=== PATIENT | female | born 1940 | race Caucasian/White ===

== ENCOUNTER 2016-07-14 00:11 | Day surgery (SDC) | payer MEDICARE, OTHER ==
[~2016-07-14 00:11] MED LIST: ATOR20TA PO; BUPR100T15 PO; CALC-752 PO; FERR325C PO; FURO40TA4 PO; HYDR-4003 PO; HYDR25TA4 PO; INDO25CA PO; LEVO100T6 PO; MULT0.252 PO; POTA-62 PO; PROP10TA8 PO; RIVA20TA PO; SULF1TAB7 PO; TRAZ-115 PO
[2016-07-14] MEDS ORDERED: Benzoc-Butamben-Tetraca Spray 20 Gm Spray TOPICAL PRN (10:00)
[2016-07-14] MEDS ORDERED: Heparin 1,000 Unit/mL 10 mL Inj ONE (13:02)
[2016-07-14] MEDS ORDERED: 0.9% Sodium Chloride 0 ML ONE (13:02)
[2016-07-14] MEDS ORDERED: Bupivacaine-MPF 0.5% 30 mL Inj ONE (13:02)
== END 2016-07-14 23:59 | disposition home or self-care (01) ==
LOC: SOUO 00:11
PROVIDERS: ATTEND Internal Medicine Cardiovascular Disease
DX: I48.0 Paroxysmal atrial fibrillation (principal)

== ENCOUNTER 2016-09-08 00:54 | Day surgery (SDC) | payer MEDICARE, OTHER ==
[~2016-09-08] VITALS: Ht 165.1 cm; Wt 59.9 kg
[2016-09-08] VITALS (16 sets, daily range): BP systolic 93–124; BP diastolic 58–82; PULSE 70–120; RESP 11–19; O2SAT 94–100
[2016-09-08] MEDS ORDERED: Protamine Sulfate 10 mg/mL 5 mL Inj ONE ×2 (00:55→11:08)
[2016-09-08] MEDS ORDERED: Dexamethasone 4 mg/mL Inj ONE (00:55)
[2016-09-08] MEDS ORDERED: Propofol 10,000 mCg/mL 20 mL Inj ONE (00:55)
[2016-09-08] MEDS ORDERED: MetoCLOpramide 5 mg/mL 2 mL Inj ONE (00:55)
[2016-09-08] MEDS ORDERED: Phenylephrine/NS 100 mCg/mL 10 mL Syringe IVPUSH ONE (00:55)
[2016-09-08] MEDS ORDERED: Ketamine 10 mg/mL 20 mL Inj ONE (00:55)
[2016-09-08] MEDS ORDERED: Ondansetron 2 mg/mL 2 mL Inj ONE (00:55)
[2016-09-08] MEDS ORDERED: Lactated Ringer's 1,000 ML IV SCH ×2 (05:00→07:54)
[2016-09-08 06:43] LABS: BASOPHILS % (AUTO) 0.5 % (0-3); EOSINOPHILS % (AUTO) 3.1 % (0-5); MONOCYTES % (AUTO) 10.9 % (4-12); Mean Corpuscular Hemoglobin 35.5 pg (27.0-35.0); Mean Corpuscular Volume 108.2 fL (81-100); NEUTROPHILS % (AUTO) 37.3 % (40-74); Platelet Count 159 bil/L (150-400)
[2016-09-08] MEDS ORDERED: Benzoc-Butamben-Tetraca Spray 20 Gm Spray TOPICAL PRN (06:45)
[2016-09-08 06:57] LABS: INR 1.1 ratio
[2016-09-08] MEDS ORDERED: 0.9% Sodium Chloride 3,000 ML ONE (07:29)
[2016-09-08] MEDS ORDERED: Heparin 5,000 Units/500 mL NS Premix IV ONE (07:29)
[2016-09-08] MEDS ORDERED: Heparin 1,000 Units/500 mL NS Premix IV ONE (07:29)
[2016-09-08] MEDS ORDERED: Heparin 1,000 Unit/mL 10 mL Inj ONE (07:29)
[2016-09-08] MEDS ORDERED: Heparin 25,000 Unit/500 mL 0.45% NS Premix IV ONE (07:29)
[2016-09-08] MEDS ORDERED: 0.9% Sodium Chloride 500 ML ONE (07:30)
[2016-09-08] MEDS ORDERED: Lactated Ringer's 500 ML IV PRN (07:54)
[2016-09-08] MEDS ORDERED: EPHEDrine Sulfate 50 mg/mL Inj IVPUSH PRN (07:55)
[2016-09-08] MEDS ORDERED: Ondansetron 2 mg/mL 2 mL Inj IVPUSH PRN (07:55)
[2016-09-08] MEDS ORDERED: Dexamethasone 4 mg/mL Inj IVPUSH PRN (07:55)
[2016-09-08] MEDS ORDERED: HYDROmorphone 1 mg/mL Inj IVPUSH PRN (07:55)
[2016-09-08] MEDS ORDERED: Phenylephrine 10,000 mCg/mL Inj IVPUSH PRN (07:55)
[2016-09-08] MEDS ORDERED: MetoCLOpramide 5 mg/mL 2 mL Inj IVPUSH PRN (07:55)
[2016-09-08] MEDS ORDERED: fentaNYL-PF 50 mCg/mL 2 mL Inj IVPUSH PRN (07:55)
[2016-09-08] MEDS ORDERED: HYDROcodone-APAP 5-325 mg Tablet PO ONE (13:45)
--- NOTE | 2016-09-08 14:22 | PROCED ---
[address] [address] PROCEDURE NOTE PATIENT: ELINA YOUNG : 1940 MR#: [id number] ADMIT: 09/08/2016 JOB ID: [id number] DATE OF SERVICE: 09/08/2016 PREOPERATIVE DIAGNOSIS(ES): Drug refractory paroxysmal atrial fibrillation. POSTOPERATIVE DIAGNOSIS(ES): Drug refractory paroxysmal atrial fibrillation. PROCEDURES PERFORMED: 1. Comprehensive electrophysiology study with left atrial pacing and recording. 2. Three-dimensional electroanatomic mapping using the CARTO 3 system. 3. Transseptal puncture x2. 4. Intracardiac echocardiography. 5. Pulmonary vein isolation/atrial fibrillation ablation. 6. Direct current cardioversion. 7. Barium esophagram. 8. Fluoroscopy. SURGEON: Matt Blake M.D. PARAPROFESSIONAL INTERPRETER: Dionna Waterman; Chaitanya Lynch; Asif Argueta PA-C. ANESTHESIA: General endotracheal anesthesia was undertaken for this case. INDICATION: The patient is a pleasant 75-year-old woman with preserved LV function, moderate mitral regurgitation with symptomatic drug refractory atrial fibrillation. After discussion of the risks and benefits of catheter based mapping ablation, she opted to proceed. PROCEDURAL DESCRIPTION: Following informed signed consent, the patient was taken to the EP laboratory in a nonsedated state where she was prepped in the usual sterile fashion. She underwent a preprocedural transesophageal echocardiogram by Dr. Vogel confirming lack of intracardiac thrombus. Please see separate dictated report for the details of that procedure. The bilateral groins were then infiltrated with 1% lidocaine. Then, using the modified Seldinger technique, two 8-Peruvian sheaths were inserted into the right femoral vein. A 7 and 10.5-Peruvian sheath were inserted into the left femoral vein, and under fluoroscopic guidance, a deflectable decapolar catheter was advanced into the coronary sinus with the most proximal bipoles at the os of the sinus. An intracardiac echocardiographic probe was advanced to the RV outflow tract and used to visualize the pericardial space. A small slightly larger than physiologic effusion was noted prior to any catheter manipulation. This was noted and monitored throughout the case. Ice probe was pulled back into the right atrium and used to visualize the interatrial septum in assistance of transseptal puncture. Two transseptal punctures were performed in an identical fashion. Each of the short 8-Peruvian sheaths in the right groin were exchanged over a long wire for a Valdovinos sheath dilator and a [place] Brockenbrough needle. Of note there was some difficulty in manipulating the wire from the right femoral vein into the SVC. Ultimately, this was achieved, and at one point, a Kumpe 5-Peruvian catheter was required to the wire. The entire system was then used to engage the interatrial septum. Then, under fluoroscopic ICE and pressure guidance, the septum was traversed twice to deliver two Valdovinos sheaths into the left atrium. The patient was heparinized for a goal ACT of 350-400 seconds for the entire time with the left atrium following the first and preceding the second transseptal puncture. A re-survey of the pericardial space showed no evidence of change in the small effusion. Through the two Valdovinos sheaths, an F curve Smart Touch irrigated ablation catheter was passed, as was a 20 pole catheter. A three-dimensional electroanatomic map of the left atrium and four pulmonary veins was created using the CARTO 3 system. The patient was in atrial fibrillation throughout the case. Circumferential ablation lesions were placed around the left upper, left lower, right upper and right lower pulmonary veins in that order. After entrance block was achieved in the left upper pulmonary vein, a 200 joule biphasic synchronized shock was used to convert the patient to sinus rhythm. Exit block was confirmed from the vein entrance and exit block was confirmed in all four veins. We then disengaged from the left atrium and turned off heparin. We reversed the patient's heparin with Protamine. A resurvey of the pericardial space showed no evidence of change in the small effusion. During the course of this study, we did complete a comprehensive electrophysiology study with right atrial pacing and recording, right ventricular pacing and recording and His bundle pacing and recording in the coronary sinus catheter. All catheters and sheaths were removed. Manual pressure was held for hemostasis. The patient was transferred to the [facility] for monitoring and bedrest. COMPLICATIONS: None. ESTIMATED BLOOD LOSS: 20 cc. FINDINGS: 1. Baseline rhythm is atrial fibrillation post cardioversion and ablation. She is in sinus rhythm with an RR interval of 914 msec, NC 184 msec, QRS 88 msec, QT 465 msec. 2. Intracardiac intervals: AH interval 80 msec, HV 50 msec. 3. Retrograde conduction: VA activation is concentric with a VA Wenckebach at 490 msec. 4. Pulmonary vein isolation with entrance and exit block as described above. IMPRESSION: Successful pulmonary vein isolation procedure for paroxysmal drug refractory atrial fibrillation. PLAN: 1. Bed rest x4 hours. 2. Resume Xarelto with first dose to be given once patient is awake. 3. Continue beta blockade. 4. Protonix 40 mg p.o. daily x1 month. 5. Initiate flecainide 50 mg twice daily and obtain an EKG in one week. 6. Followup with Asif Argueta in four weeks and with me in three months. ATTENDING STATEMENT: Matt Blake M.D., electrophysiology attending, was present for and supervised/performed all aspects of this procedure.
--- NOTE | 2016-09-08 14:58 | PCM.ANEP1 ---
Post Anesthesia Phase 1 PACU Phase 1 Assessment Vital Signs Vital Signs Date Time Temp Pulse Resp B/P Pulse Ox O2 Delivery O2 Flow Rate FiO2 09/08/16 14:30 80 11 113/68 09/08/16 14:30 80 12 113/68 94 Room Air 09/08/16 14:00 79 11 113/65 09/08/16 14:00 80 12 113/68 94 Room Air 09/08/16 13:29 79 11 113/65 95 Room Air 09/08/16 13:29 79 11 113/65 09/08/16 13:00 78 11 102/67 95 Room Air 09/08/16 13:00 75 11 102/67 09/08/16 12:45 75 11 106/63 09/08/16 12:45 75 11 106/63 95 Room Air 09/08/16 12:30 74 11 96/59 09/08/16 12:30 74 11 96/59 95 Room Air 09/08/16 12:15 73 14 93/59 95 Room Air 09/08/16 12:05 72 14 95/59 95 Room Air 09/08/16 12:00 72 14 99/63 100 Oxy Mask 6.00 09/08/16 11:55 36.2 70 14 97/62 100 Oxy Mask 6.00 Anesthetic Administered: GA Level of Alertness: Awake, talking Pain: No Nausea or Vomiting: No Cardiovascular Function and Hy: No Lungs: Normal Air Movement Saad Rivera MD Sep 08, 2016 14:58
--- NOTE | 2016-09-08 14:58 | PCM.HPANE ---
Patient Data Surgeon Admitting Provider: Attending Provider:Matt Blake MD Primary Care Physician:Hermilo Rainey MD Other Provider:LeoocLusk Anesthesia Reason for Visit Paroxysmal Atrial Fibrillation Ht/WT & BMI Height (Feet): 5 Height (Inches): 5.00 Weight (Kilograms): 58.100 Body Mass Index 21.34 Allergies Coded Allergies: No Known Allergies (Unverified , 07/14/16) Past Anesthesia History Anesthesia History: Denies:: Anesthesia Reactions Diabetes History Hx Diabetes?: No MRSA MRSA: Yes (with hip replacement in 2012) Medications Hypertension Medication: No Home Meds Incl Beta Vladislav: No Reported Medications Rivaroxaban (Xarelto)20 Mg Zctetu74 Mg PO DAILYWD 07/13/16 Trazodone 50 Mg Luqjwg39 Mg PO HS PRN For Insomnia Ref 0 07/13/16 Sulfamethoxazole/Trimeth 800-160 mg (Bactrim DS)1 Each Tablet1 Tablet PO DAILY Ref 0 07/13/16 Propranolol HCl 10 Mg Ycpjvr25 Mg PO TID 90 Days Ref 0 07/13/16 Potassium Chloride ER 20 Meq Tablet.er20 Meq PO TID Ref 0 TAKE WITH FOOD 07/13/16 Multivitamins with Fluoride (Multivit-Fluor 0.25 mg/ml Drop)0.25 Mg/1 Ml Drops0.25 Mg PO 07/13/16 Levothyroxine 100 Mcg Gtpuwp657 Mcg PO DAILY For Thyroid Replacement Ref 0 07/13/16 Ferrous Sulfate (Iron)325 Mg Capsule.er325 Mg PO BID 07/13/16 Indomethacin 25 Mg Ssuscsz89 Mg PO TID PRN Gout Ref 0 07/13/16 Hydrocodone-Acetaminophen 5-325 mg 1 Each Tablet1 Tablet PO Q6H PRN For Pain Ref 0 07/13/16 Hydrochlorothiazide 25 Mg Czyivm65 Mg PO DAILY PRN Edema 30 Days Ref 0 07/13/16 Furosemide 40 Mg Edpncq47 Mg PO DAILY 07/13/16 Calcium Carbonate/Mag Oxide/Zn (Qmonuse-Qlvqtrtyl-Jqrq Tablet)1 Each Tablet1 Each PO DAILY 07/13/16 Bupropion 100 Mg Jwatym983 Mg PO BID Ref 0 07/13/16 Atorvastatin (Lipitor)20 Mg Wmsrsc07 Mg PO DAILY Ref 0 07/13/16 History History of ENT Problems?: No HEENT History: Denies:: Abnormal Airway Cataracts Difficult Intubation Dysphagia Glaucoma Hearing Problem Sinus Problem TMJ Denture Type: None Teeth Condition: Within Normal Limits Hx of Heart Problems?: Yes Cardiovascular History: Positive for:: Hypertension (on medication) Irregular Heartbeat (atrial fibrillation) Denies:: Cardiac Surgery Chest Pain Congestive Heart Failure Edema Heart Murmur Peripheral Vascular Hx of Respiratory Problem?: No Respiratory History: Denies:: Asthma COPD Chest Surgery Cough Dyspnea Emphysema Hemoptysis Oxygen Administration Pneumonia Pulmonary Embolism Tuberculosis Use of C-PAP Machine Use of Inhalers / NEBS Hx Neurologic Problems?: Yes Neurological History: Positive for:: Headaches (distant history of migraines) Denies:: Alzheimer's Disease CVA Dementia Dizziness Multiple Sclerosis Parkinson's Disease Peripheral Neuropathy Seizures TIA Hx of GI Problems?: Yes Gastrointestinal History: Denies:: Cirrhosis Diverticulitis Gall Bladder Disease Gastroesphageal Reflux Gastrointestinal Bleeding Heartburn Hepatitis Hiatal Hernia Liver Disease Rectal Bleeding Hx of Problems?: No Genitourinary History: Denies:: HX of Hemodialysis Kidney Stones Urinary Tract Infection HX of Peritoneal Dialysis: No Female Hx: Denies:: Currently Endometriosis Pelvic Inflammatory Problems with Breasts? Skin History: Denies:: History Skin Disorders? Pressure Ulcers Hx Musculoskeletal Problems?: Yes Musculoskeletal History: Positive for:: Back Injury (chronic back pain) Joint Replacement (4 hip replacements) Denies:: Degenerative Joint Fibromyalgia Musculoskeletal Trauma Myasthenia Gravis Osteoarthritis Rheumatoid Arthritis Systemic Lupus Hx of Psycho/Social Problems?: No Psycho Social History: Denies:: Anxiety Bipolar Disorder Hx Depression Suicide Attempt Hx Surgeries?: Yes (wrist fracture, 4 hip replacement) Hx Any Other Health Problems?: No Other History: Positive for:: Cancer (breast cancer) Hospitalization Thyroid Disease (on replacement) Denies:: Endocrine Disease History Blood Transfusions: Positive for:: Accept Blood Products? Blood Transfusions Hx Diabetes: No Hx Alcohol Use: Yes (2 glasses a day)Hx Substance Use: NoHave You Smoked inLast 12 mo: No Stop/Bang Treated for Sleep Apnea?: No Do You Have a CPAP Machine?: No JENY Risk Assessment: Low Risk, <3 Yes Risk Assessment Category Category 1A: Patient has history of documented sleep apnea, and HAS NOT received any narcotic, sedative or anesthesia administration during this stay. Category 1B: Patient has history of documented sleep apnea, and HAS received any narcotic , sedative or anesthesia administration during this stay Category 2: Patient has SUSPECTED Obstructive Sleep Apnea, and HAS received any narcotic , sedative or anesthesia administration during this stay. Category 3: Patient has SUSPECTED Obstructive Sleep Apnea and HAS NOT received narcotic, sedative or anesthesia administration during this stay. Category 4: Outpatient in Procedural Areas with known sleep apnea or who screen positive for High Risk via the STOP/BANG questionnaire. Exam Exam Vital Signs Vital Signs Date Time Temp Pulse Resp B/P Pulse Ox O2 Delivery O2 Flow Rate FiO2 09/08/16 14:30 80 11 113/68 09/08/16 14:30 80 12 113/68 94 Room Air 09/08/16 14:00 79 11 113/65 09/08/16 14:00 80 12 113/68 94 Room Air 09/08/16 13:29 79 11 113/65 95 Room Air 09/08/16 13:29 79 11 113/65 09/08/16 13:00 78 11 102/67 95 Room Air 09/08/16 13:00 75 11 102/67 09/08/16 12:45 75 11 106/63 09/08/16 12:45 75 11 106/63 95 Room Air 09/08/16 12:30 74 11 96/59 09/08/16 12:30 74 11 96/59 95 Room Air 09/08/16 12:15 73 14 93/59 95 Room Air 09/08/16 12:05 72 14 95/59 95 Room Air 09/08/16 12:00 72 14 99/63 100 Oxy Mask 6.00 09/08/16 11:55 36.2 70 14 97/62 100 Oxy Mask 6.00 General Appearance: Oriented X3 HEENT/AIRWAY: MP 2 Lungs: Normal Air Movement Heart: Other Meds/Labs/Diagnostics Admission Meds Current Medications Rivaroxaban (Xarelto) 20 mg DAILY@17 PO Last administered on 09/08/16t 14:22; Start 09/08/16 at 13:45 Labs Test 09/08/16 06:34 White Blood Count 3.9th/mm3 (3.8-10.1) Red Blood Count 3.66mil/mm3 (3.90-5.20) Hemoglobin 13.0g/dL (12.0-15.6) Hematocrit 39.6% (35.0-46.0) Mean Corpuscular Volume 108.2fL (81-100) Mean Corpuscular Hemoglobin 35.5pg (27.0-35.0) Mean Corpuscular Hemoglobin Concent 32.8% (32.0-37.0) Red Cell Distribution Width 11.3% (12.3-15.4) Platelet Count 159bil/L (150-400) Neutrophils (%) (Auto) 37.3% (40-74) Lymphocytes (%) (Auto) 48.2% (14-46) Monocytes (%) (Auto) 10.9% (4-12) Eosinophils (%) (Auto) 3.1% (0-5) Basophils (%) (Auto) 0.5% (0-3) Prothrombin Time 11.8sec (8.1-12.5) Prothromb Time International Ratio 1.10ratio Sodium Level 138mEq/L (134-144) Potassium Level 3.9mEq/L (3.5-5.2) Chloride Level 98mEq/L (97-108) Carbon Dioxide Level 25mmol/L (18-29) Blood Urea Nitrogen 12mg/dL (8-27) Creatinine 0.85mg/dL (0.57-1.00) Estimat Glomerular Filtration Rate 93mL/min (>59) Glucose Level 92mg/dL (60-99) Calcium Level 9.4mg/dL (8.5-10.1) Plan Impression Patient chart reviewed, patient interviewed and anesthestic plan with risks, benefits, and alternatives discussed, and informed consent obtained. ASA Physical Status: ASA3 Severe Disease Anesthetic Support Modalities: Arterial Line Anesthetic Plan: GA Bene/Risks/Altern/Consents: Yes HP Complete Prior to Induction: Yes Saad Rivera MD Sep 08, 2016 14:58
[2016-09-08] MEDS ORDERED: HYDROcodone-APAP 5-325 mg Tablet PO PRN (15:45)
[2016-09-08] MEDS ORDERED: Indomethacin 25 mg Capsule PO PRN (15:45)
--- NOTE | 2016-09-08 16:45 | NUR ---
To [facility] from [facility] Pt arrived to [facility] from [facility] at 15:30 post ablation. Report received from AMALIA adair. Vitals stable, CMS intact, bilateral pedal pulses pulses equal, left and right groin sites non-tender, soft to palpation. Cardiac: Pt denies CP. Tele: SR 80s. Resp: Pt denies SOB, SPO2 mid 90s on RA. GI/: Pt denies n/v/d Neuro: A&Ox3, FRANCO, pt not up at this time.
[2016-09-08] MEDS: buPROPion SR 100 mg ER12 Tablet PO SCH (19:52)
[2016-09-08] MEDS: Potassium Chloride 20 mEq SR Tablet PO SCH (19:53)
--- NOTE | 2016-09-08 21:14 | NUR ---
Carl beavers around 1930 pt tolerating well, up to bathroom to try and have BM, unsuccessful with BM but passing lots of gas. pt a little wobbly getting up but uses a 4 wheel walker at home r/t multiple hip surgeries Addendum: 09/09/16 at 0501 by KYA WALLER RN pt up to bathroom and voiding small amount
[2016-09-09 03:06] VITALS: BP 92/67; PULSE 83; RESP 16; O2SAT 94
--- NOTE | 2016-09-09 05:01 | NUR ---
no pain pt denies any pain or SOB, bilat groin sites look good no s/s of hematoma
[2016-09-09 05:36] VITALS: PULSE 92
[2016-09-09] MEDS ORDERED: Pantoprazole 40 mg ER24 Tablet PO SCH (06:30)
[2016-09-09 07:40] VITALS: BP 103/68; PULSE 87; RESP 16; O2SAT 94
[2016-09-09 08:00] VITALS: PULSE 88
--- NOTE | 2016-09-09 08:47 | PCM.DIMED ---
Discharge Instructions Date of Service Sep 09, 2016 Dates of Hospitalization Discharge Diagnosis Discharge Diagnosis Symptomatic Paroxysmal Atrial Fibrillation Hypertension Mitral Insufficiency Diet Heart Healthy Activity Other (May shower and remove dressings this evening. To prevent bleeding, do not lift or push more than 10 lbs for one week. To prevent infection, do not sit in a bath tub, hot tub or pool for one week.) Call your provider Fever or Chills, Bleeding, Excessive diarrhea, Weakness (unilateral) Patient Instructions Mid-level Provider (F9): Asif Argueta PA-C Follow-up with Mid-level in: 4 weeks Asif Argueta PA-C Sep 09, 2016 08:46
[2016-09-09] MEDS ORDERED: FLC50T PO (08:52)
[2016-09-09] MEDS ORDERED: PANT40TA3 PO (08:52)
[2016-09-09] MEDS: buPROPion SR 100 mg ER12 Tablet PO SCH (08:56)
[2016-09-09] MEDS: Potassium Chloride 20 mEq SR Tablet PO SCH (08:56)
--- NOTE | 2016-09-09 09:33 | DRSVH ---
[facility] [address] [place] [address] Echocardiogram Report Name: ELINA YOUNG PStudy Date: 09/08/2016 Height: 65.5 in Hospital Exam Location: [facility] Weight: 135 lb Gender: Female BSA: 1.7 m2 : 1940 Age: 75 yrs BP: 93/72 mmHg Reason For Study: Pre-ablation Ordering Physician: Performed By: Shiv Jordan Referring Physician: DAYAMI FAROOQ Interpretation Summary afib with RVR Normal LV size, wall thickness, wall motion and LV systolic function. Mild-moderate central MR in the setting of flat closure plane. No prolapse or flail leaflet present No other valvular abnormalities identified No JOS thrombus Procedure: A 2D transesophageal echocardiogram with spectral and color flow Doppler was performed. The patient was brought to the cardiac catheterization lab in a fasting state. Sedation was managed by anesthesiologist; see anesthesiology notes for details. The patient was in atrial fibrillation with rapid ventricular response during the exam with a heart rate exceeding 100 bpm. There were no complications. Atria: No thrombus is detected in the left atrial appendage. No left atrial mass or thrombus visualized. The interatrial septum is intact with no evidence for an atrial septal defect. Mitral Valve: The mitral valve leaflets appear borderline thickened, but open well. There is a flat closure plane of the the mitral valve leaflets. There is moderate mitral regurgitation. There are multiple regurgitant jets present. Aortic Valve: The aortic valve is normal in structure and function. No aortic regurgitation is present. Tricuspid Valve: The tricuspid valve is not well visualized, but is grossly normal. There is mild to moderate tricuspid regurgitation. Pulmonic Valve: The pulmonic valve leaflets are thin and pliable; valve motion is normal. There is no pulmonic valvular regurgitation. Doppler Measurements & Calculations TR max martin: 244.4 cm/sec TR max P.9 mmHg Reading Physician:09:32 AM
--- NOTE | 2016-09-09 10:40 | DIS ---
[address] [address] DISCHARGE SUMMARY PATIENT: ELINA YOUNG : 1940 MR#: [id number] ADMIT: 09/08/2016 JOB ID: [id number] DIS: 09/09/2016 REASON FOR ADMISSION: Ablation procedure for atrial fibrillation. CHIEF COMPLAINT: Palpitations, fatigue, lightheadedness, and low energy during atrial fibrillation. BRIEF HISTORY: The patient is a pleasant 75-year-old woman with preserved biventricular function, mild to moderate mitral valve regurgitation and highly symptomatic paroxysmal atrial fibrillation not successfully treated with antiarrhythmic medications. She has been having episodes multiple times weekly and is symptomatic with fatigue, lightheadedness, weakness, and palpitations. She was offered atrial fibrillation ablation procedure for more definitive therapy of the arrhythmia, and she wished to go forward. COURSE IN HOSPITAL: The patient was admitted through the [facility] and taken to the cardiac cath tech, where she was first placed under general anesthesia by the anesthesiologist. She then had a JEREMY which showed no evidence of left atrial thrombus. Then the ablation procedure was undertaken and completed without incident. Afterward the right and left femoral venous sheaths were removed and hemostasis was obtained. She was awakened from anesthesia and transferred back to the [facility] for further recovery. She did well and became alert again and had no bleeding or hematoma at the access sites. Her Elaine catheter was removed and she was able to void her bladder. In the morning she was feeling well and denied any chest pain, shortness of breath, or nausea. She had been up to the bathroom a few times with the assistance of a walker which she uses at home and had no difficulties. She felt well for discharge home. DISPOSITION: The patient was discharged home in good condition with a followup appointment at the [facility] Cardiology office in 1 month. She was asked to not lift, push or pull more than 10 pounds for one week to prevent bleeding and to not sit in the hot tub, bathtub, or pool for one week to prevent infection. She will follow a heart healthy diet and take medications as prescribed. DISCHARGE MEDICATIONS: 1. Flecainide 50 mg b.i.d. 2. Pantoprazole DR 40 mg daily for 1 month only. 3. Atorvastatin 20 mg daily. 4. Bupropion 100 mg b.i.d. 5. Calcium carbonate, mag oxide tablet 1 daily. 6. Ferrous sulfate 325 mg b.i.d. 7. Furosemide 60 mg daily. 8. Hydrochlorothiazide 25 mg p.r.n. edema. 9. Hydrocodone/acetaminophen 5/325 mg tablets 1 tablet q.6 hours p.r.n. pain. 10. Indomethacin 25 mg t.i.d. p.r.n. 11. Levothyroxine 100 mcg daily. 12. Multivitamin with fluoride liquid 0.25 mg daily. 13. Potassium chloride 20 mEq t.i.d. 14. Propranolol 10 mg t.i.d. 15. Rivaroxaban 20 mg daily. 16. Sulfamethoxazole/trimethoprim tablets as needed. 17. Trazodone 50 mg at bedtime p.r.n. insomnia. FINAL DIAGNOSES: 1. Symptomatic paroxysmal atrial fibrillation. 2. Hypertension. 3. Mitral valve insufficiency. [facility]
== END 2016-09-09 11:30 | disposition home or self-care (01) ==
LOC: SOUO 00:54 → PCC 15:37 → SOUO 09-09 11:30
PROVIDERS: ATTEND Internal Medicine Cardiovascular Disease
DX: I48.0 Paroxysmal atrial fibrillation (principal); I10 Essential (primary) hypertension; I34.0 Nonrheumatic mitral (valve) insufficiency
CPT/HCPCS: 80048; 85025; 85610; 92960; 93613; 93656; 93662; C1730; C1732; C1759; C1769; C1894; J1100; J1644; J2250; J2370; J2405; J2720; J2765; J7030; J7040